=== PATIENT | female | born 2000 | race Hispanic/Latino ===

== ENCOUNTER 2020-03-14 14:02 | Emergency (ER) | payer OTHER ==
[~2020-03-14] VITALS: Ht 157.5 cm; Wt 52.2 kg
--- NOTE | 2020-03-14 14:44 | Emergency Department Note ---
History of Present Illnes History of Present Illness Chief Complaint: after fiding out her father was positive for covid 19 pt became sob and wantds to be checked out History of Present Illness This is a 20 year old female . 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 Any updates have been documented here. Past Medical History Recent Fever: No Clinical Suspicion of Infectio: No New/Unexplained Change in Ment: No Past Medical History: None Other Medical History: lmp now Past Surgical History: None Social History Smoking Cessation: Never Smoker Alcohol Use: None Any Illegal Drug Use: No TB Exposure/Symptoms: No Other Any Pre-Existing Lines (PICC,: No Is patient up to date on immun: No Review of Systems Review of Systems Constitutional: Reports no symptoms EENTM: Reports no symptoms Cardiovascular: Reports no symptoms Respiratory: Reports as per HPI Gastrointestinal: Reports no symptoms Genitourinary: Reports no symptoms Musculoskeletal: Reports no symptoms Integumentary: Reports no symptoms Neurological: Reports no symptoms Psychological: Reports no symptoms Endocrine: Reports no symptoms Hematological/Lymphatic: Reports no symptoms Review of other systems: All other systems negative Physical Exam Related Data Vital signs reviewed: Yes (WNL O2 sat on room air 100 %) Physical Exam CONSTITUTIONAL Constitutional: Present well-developed HENT HENT: Present normocephalic, Present atraumatic EYES Eyes: Reports PERRL, Reports conjunctivae normal, Reports EOM normal, Reports lids normal NECK Neck: Present ROM normal, Present supple PULMONARY Pulmonary: Present effort normal, Present breath sounds normal, Present other (no sign of respiratory distress speaks in full sentences without difficulty no retraction respirations no labored) CARDIOVASCULAR Cardiovascular: Present regular rhythm, Present heart sounds normal, Present intact distal pulses, Present capillary refill normal, Present normal rate GASTROINTESTINAL Abdominal: Present soft, Present nontender, Present bowel sounds normal GENITOURINARY Genitourinary: Present exam deferred SKIN Skin: Present warm, Present dry MUSCULOSKELETAL Musculoskeletal: Present ROM normal NEUROLOGICAL Neurological: Present alert, Present oriented x 3, Present DTRs normal, Present no gross motor or sensory deficits PSYCHOLOGICAL Psychological: Present mood/affect normal, Present behavior normal, Present t hought content normal, Present judgement normal Assessment & Plan Medical Decision Making MDM covid exposure currently asymptomatic needs testing at an out patient facility. Pt told she needs to self isolate for 2 weeks and to follow with her family doctor Assessment & Plan Final Impression: (1) Exposure to COVID-19 virus Depart Disposition: HOME, SELF-CARE JESS BRIGHT MD Mar 14, 2020 14:44
== END 2020-03-14 15:21 | disposition home or self-care (01) ==
LOC: FSED 15:07
DX: Z03.818 Encounter for observation for suspected exposure to other biological agents ruled out (principal)
CPT/HCPCS: 99282

== ENCOUNTER 2020-04-30 04:01 | Emergency (ER) | payer OTHER ==
[~2020-04-30] VITALS: Ht 160 cm; Wt 52.2 kg
[2020-04-30] MEDS ORDERED: MORPHINE SULFATE 2 MG/ML SYR 1ML IV STA ×2 (04:19→05:41)
[2020-04-30] MEDS ORDERED: ONDANSETRON HCL INJ 2MG/ML 2ML 2 MG/ML VIAL IV STA (04:19)
--- NOTE | 2020-04-30 04:25 | NUR ---
PT VOMITED INTO TRASH CAN X1
[2020-04-30] MEDS ORDERED: MORPHINE SULFATE INJ 4 MG/ML INJ 1ML ONE (04:39)
[2020-04-30] MEDS ORDERED: ONDANSETRON HCL INJ 2MG/ML 2ML 2 MG/ML VIAL ONE (04:39)
--- NOTE | 2020-04-30 04:47 | NUR ---
RETURNED FROM CT TO 1
--- NOTE | 2020-04-30 05:00 | NUR ---
AWAITING CT RESULTS.
--- NOTE | 2020-04-30 05:20 | NUR ---
PT CALLED HER MOTHER TELLING HER SHE WAS IN PAIN. MOTHER CAME INTO ER TO INFORM REGISTRATION OF HER DAUGHTER NEEDING MORE PAIN MEDICINE CAUSE SHE WAS IN PAIN. CHECKED ON PT-SHE STATES HER PAIN COMES AND GOES. WHEN IT COMES IT IS 5-6/10 BUT WHEN IT STOPS IT IS 0/10. I EXPLAINED IT HAS BEEN LESS THAN AN HR SINCE SHE REC'D MORPHINE AND NO MORE ORDERED BUT WILL INFORM MD.
--- OUTSIDE RECORDS SUMMARY | 2020-04-30 05:32 | XMS REPORT | Clinical Summary ---
Author Author [facility] Organization [facility] Address Unknown Phone Unavailable Care Team Providers Care English Composition Teacher Name Role Phone Pat Gomez MD PCP Allergies No Known Allergies Medications End Date Status Medication Sig Dispensed Refills Start Date Active ibuprofen (ADVIL ORAL) Take by 0 mouth. Active Problems No known active problems Encounters Care Team Description Date Type Specialty Pat Gomez MD Breast lump in female 12/30/2019 Hospital Radiology Encounter 12/30/2019 Travel 12/26/2019 Travel Pat Gomez MD Breast lump in female (Primary Dx) 12/25/2019 Telemedicine Family Medicine 12/25/2019 Travel after 04/30/2019 Immunizations Name Administration Dates Next Due DTaP, Unspecified 01/19/2004, 04/18/2001, 04/2000, 2000, 2000 Hep A, Unspecified 01/20/2003, 2002 Hep B, Unspecified 2000, 2000, 04/2000 Hib (PRP-T) 04/18/2001, 2000, 04/2000, 2000 IPV 01/19/2004, 04/18/2001, 04/2000, 2000, 2000 Influenza, Quadrivalent 07/28/2010 MMR 01/19/2004, 01/16/2001 Meningcoccal Group B 4 04/26/2018 Strain (3 Dose) Meningococcal ACYW, 12/19/2011 Unspecified Meningococcal MCV4P 04/26/2018 PPD Test 01/16/2006, 01/24/2005, 06/2004, 03/28/2003, 01/16/2001 Pneumococcal Conjugate 04/18/2001, 2000, 04/2000, 2000 Tdap 12/19/2011 Varicella 01/15/2009, 01/16/2001 Family History Medical History Relation Name Comments Hyperlipidemia Father Vitamin D deficiency Father Heart disease Maternal Grandmother No Known Problems Mother Relation Name Status Comments Father Alive Maternal Grandmother Mother Alive Social History Date Tobacco Use Types Packs/Day Years Used Never Smoker Smokeless Tobacco: Never Used Drinks/Week oz/Week Comments Alcohol Use No Sex Assigned at Date Recorded Not on file Industry Job Start Date Occupation Not on file Not on file Not on file Travel End Travel History Travel Start No recent travel history available. Last Filed Vital Signs Not on file Plan of Treatment Health Maintenance Due Date Last Done Comments CHLAMYDIA SCREENING 2016 INFLUENZA VACCINE 05/12/2020 07/28/2010 Procedures Comments Procedure Name Priority Date/Time Associated Diag nosis US BREAST COMPLETE Routine 12/30/2019 Breast lump in female BILATERAL 9:36 AM CDT after 04/30/2019 Results * US Breast Complete Bilateral (12/30/2019 9:36 AM CDT) Specimen Narrative Performed At PROCEDURE: US BREAST COMPLETE BILATERAL [facility] Bilateral real-time whole breast sonogr aphy included all four quadrants and the retroareolar regions under close superv ision by the radiologist. INDICATION: 19-year-old female with rig ht upper-outer quadrant pain and associated palpable finding. COMPARISON: None. FINDINGS: The fibroglandular tissues are homogeneously dense. In the right upper-outer quadrant, at the palpable a lucho of concern, dense fibroglandular tissue is identified. No suspicious mas s or acoustic abnormality is identified in either breast. IMPRESSION: No sonographic abnormalit y in either breast. RECOMMENDATION: Clinical follow-up is r ecommended for the right upper quadrant breast pain. Findings and recommendations were discu ssed with the patient. BI-RADS 2: BENIGN DWS01 Performing Organization Address City/State/Zipcode Ph one Number [facility] [address] [place] [address] after 04/30/2019 Insurance Type Payer Benefit Subscriber ID Effective Phone Address Plan / Dates Group PPO BCBS BCBS OUT xxxxxxxxxxxx 2019-P OF STATE resent [id number] Advance Directives For more information, please contact: [phone] Patient Preparer Explanation Type Date Recorded Advance Directives, Living Will and Medical Power of Casualty Claim Adjuster
--- OUTSIDE RECORDS SUMMARY | 2020-04-30 05:33 | XMS REPORT | Continuity of Care Document ---
Author Author [facility] Organization [facility] Address [address] [place] [address] Phone Unavailable Care Team Providers Care Promotional Model Name Role Phone NO, PCP PCP Unavailable Jason VIERA, Nancy Stewart Attphys Payers Payer Name Policy Type Policy Number Effective Date Expiration Date S ource Miscellaneous Ppo [id number] [facility] Cdc Review Covid19 [id number] [facility] BCBSBCBS OUT OF STATExxxxxxxxxxxx9-PresentPPO xxxxxxxxxxxx 2019 00:00:00 Vincen[facility] Moses Problems Condition Name Condition Details Condition Category Status Onset Date Resolution Date Last Treatment Date Treating Clinician Comments Source Exposure to severe acute respiratory syndrome coronavirus 2 (SARS-CoV-2) Problem Active [facility] Allergies, Adverse Reactions, Alerts This patient has no known allergies or adverse reactions. Family History Family Member Diagnosis Comments Start Date Stop Date Source Natural father Hyperlipidemia [facility] Natural father Vitamin D deficiency Vincenzo Moses Maternal grandmother Heart disease [facility] [place] [facility] Natural mother No Known Problems Maddi Moses Social History Social Habit Start Date Stop Date Quantity Comments Source Sex Assigned At Maddi Moses Alcohol intake 2019-01-16 00:00:00 2019-01-16 00:00:00 Current non-drinker of alcohol (finding) Vincen[facility] Moses Smoking Status Start Date Stop Date Source Never smoker Vincenzo phipps Medications Ordered Medication Name Filled Medication Name Start Date Stop Da te Current Medication? Ordering Clinician Indication Dosage Frequency Signature (SIG) Comments Components Source ibuprofen (ADVIL ORAL) 2019-01-16 12:17:32 Yes Take by mouth. [facility] Immunizations Ordered Immunization Name Filled Immunization Name Date Status Comments Source Meningococcal MCV4P 2018-04-26 00:00:00 Completed [facility] Meningcoccal Group B 4 Strain (3 Dose) 2018-04-26 00:00:00 Completed [facility] Tdap 2011-12-19 00:00:00 Completed [facility] Meningococcal ACYW, Unspecified 2011-12-19 00:00:00 [facility] Influenza, Quadrivalent 2010-07-28 00:00:00 Completed [facility] Varicella 2009-01-15 00:00:00 Completed [facility] PPD Test 2006-01-16 00:00:00 Completed [facility] PPD Test 2005-01-24 00:00:00 Completed [facility] PPD Test 2004-01-19 00:00:00 Completed [facility] MMR 2004-01-19 00:00:00 Completed [facility] IPV 2004-01-19 00:00:00 Completed [facility] DTaP, Unspecified 2004-01-19 00:00:00 Completed [facility] PPD Test 2003-03-28 00:00:00 Completed [facility] Hep A, Unspecified 2003-01-20 00:00:00 Completed [facility] Hep A, Unspecified 2002 00:00:00 Completed [facility] Pneumococcal Conjugate 2001-04-18 00:00:00 Completed [facility] IPV 2001-04-18 00:00:00 Completed [facility] Hib (PRP-T) 2001-04-18 00:00:00 Completed [place] [facility] DTaP, Unspecified 2001-04-18 00:00:00 Completed [facility] Varicella 2001-01-16 00:00:00 Completed [facility] PPD Test 2001-01-16 00:00:00 Completed [facility] MMR 2001-01-16 00:00:00 Completed [facility] Pneumococcal Conjugate 2000 00:00:00 Completed [facility] IPV 2000 00:00:00 Completed [facility] Hib (PRP-T) 2000 00:00:00 Completed [facility] Hep B, Unspecified 2000 00:00:00 Completed [facility] DTaP, Unspecified 2000 00:00:00 Completed [facility] Pneumococcal Conjugate 2000 00:00:00 Completed [facility] IPV 2000 00:00:00 Completed [place] [facility] Hib (PRP-T) 2000 00:00:00 Completed [place] [facility] DTaP, Unspecified 2000 00:00:00 Completed [facility] Pneumococcal Conjugate 2000 00:00:00 Completed [facility] IPV 2000 00:00:00 Completed [place] [facility] Hib (PRP-T) 2000 00:00:00 Completed [place] [facility] Hep B, Unspecified 2000 00:00:00 Completed [facility] DTaP, Unspecified 2000 00:00:00 Completed [facility] Hep B, Unspecified 2000 00:00:00 Completed [facility] Vital Signs Vital Name Observation Time Observation Value Comments Source Weight 2020-03-14 14:15:00 115 [lb_av] [facility] BMI (Body Mass Index) 2020-03-14 14:15:00 21.0 kg/m2 [facility] Procedures Procedure Date / Time Performed Performing Clinician Sour e US BREAST COMPLETE BILATERAL 2019-12-30 09:36:09 Pat Villatoro Plan of Care Planned Activity Planned Date Details Comments Source Future Scheduled Test 2020-05-12 00:00:00 INFLUENZA VACCINE [code = INFLUENZA VACCINE] Vincenzo Moses Future Scheduled Test 2016 00:00:00 CHLAMYDIA SCREENIN G [code = CHLAMYDIA SCREENING] [facility]: 11/25/2019 [facility] Encounters Start Date/Time End Date/Time Encounter Type Admission Type Att[facility] Facility Care Department Encounter ID Source 2020-03-14 15:07:00 2020-03-14 15:21:00 Departed Emergency Room [id number] [facility] 00:00:00 2019-12-30 00:00:00 Outpatient [facility] [id number] Vincenzo Moses 2019-12-25 00:00:00 2019-12-25 00:00:00 Outpatient [facility] [id number] Vincenzo Moses 2019-03-05 23:52:00 2019-03-05 23:52:00 [facility] [facility] Results Test Description Test Time Test Comments Results Result Comments Source US Breast Complete Bilateral 2019-12-30 10:09:16 PROCEDURE: US BREAST COMPLETE BILATERALBilateral real-time whole breast sonography included all four quadrants and the retroareolar regions under close supervision by the radiologist. INDICATION: 19-year-old female with right upper-outer quadrant pain and associated palpable finding. COMPARISON: None. FINDINGS: The fibroglandular tissues are homogeneously dense. In the right upper-outer quadrant, at the palpable area of concern, dense fibroglandular tissue is identified. No suspicious mass or acoustic abnormality is identified in either breast. IMPRESSION: No sonographic abnormality in either breast. RECOMMENDATION: Clinical follow-up is recommended for the right upper quadrant breast pain. Findings and recommendations were discussed with the patient. BI-RADS 2: BENIGN DWS01 [facility]
--- NOTE | 2020-04-30 05:34 | Diagnostic Imaging Report ---
EXAM: CT Abdomen and Pelvis WITHOUT contrast INDICATION: Mid abdominal pain COMPARISON: None. TECHNIQUE: Abdomen and pelvis were scanned utilizing a multidetector helical scanner from the lung base to the pubic symphysis without administration of IV contrast. Absence of intravenous contrast decreases sensitivity for detection of focal lesions and vascular pathology. Coronal and sagittal reformations were obtained. Routine protocol was performed. IV CONTRAST: None ORAL CONTRAST: None COMPLICATIONS: None RADIATION DOSE: Total DLP: ... 216 mGy*cm Estimated effective dose: (DLP x 0.015 x size factor) mSv CTDIvol has been reviewed. It is below the limits set by the Radiation Protocol Committee (RPC). Dose modulation, iterative reconstruction, and/or weight based adjustment of the mA/kV was utilized to reduce the radiation dose to as low as reasonably achievable. FINDINGS: LINES and TUBES: None. LOWER THORAX: Unremarkable HEPATOBILIARY: No focal hepatic lesions. No biliary ductal dilation. GALLBLADDER: No radio-opaque stones or sludge. No wall thickening. SPLEEN: No splenomegaly. PANCREAS: No focal masses or ductal dilatation. ADRENALS: No adrenal nodules KIDNEYS/URETERS: No hydronephrosis. No cystic or solid mass lesions. No stones. GI TRACT: No abnormal distention, wall thickening, or evidence of bowel obstruction. Appendix is normal. PELVIC ORGANS/BLADDER: Right ovarian follicle/cyst. LYMPH NODES: No lymphadenopathy. VESSELS: Unremarkable. PERITONEUM / RETROPERITONEUM: No free air or fluid. BONES: Unremarkable. SOFT TISSUES: Unremarkable. IMPRESSION: No acute abnormality in the abdomen or pelvis on this noncontrast CT. Signed by: Nehemiah Limon DO on 04/30/2020 5:30 AM
--- NOTE | 2020-04-30 05:44 | Emergency Department Note ---
History of Present Illnes History of Present Illness Chief Complaint: Abdominal Complaints History of Present Illness This is a 20 year old female Chief Complaint Comment MIDLINE UPPER ABD PAINS SINCE 2329. SHARP CRAMPING FEELING. DENIES ANY OTHER SYMPTOMS. NO N/V/D . Historian: Patient Arrival Mode: Car Additional Treatment RADIATION SAFETY OFFICER: NONE Onset (how long ago): day(s) Location: periumbilical Quality: craming Radiation: Denies non-radiation, Denies back, Denies neck, Denies extremity, Denies abdomen, Denies periumbilical, Denies flank, Denies proximal, Denies distal, Denies other Severity: moderate Onset quality: gradual Duration (how long): day(s) (1) Timing of current episode: constant Progression: waxing and waning Chronicity: new Context: Denies recent illness, Denies recent surgery, Denies recent immobilization, Denies recent travel, Denies trauma/injury, Denies new medications, Denies hx of DVT/PE, Denies non-compliance w/ medications, Denies other Relieving factors: none Exacerbating factors: none Associated symptoms: Reports denies other symptoms Treatments prior to arrival: none Past Medical/Family History Physician Review I have reviewed the patient's past medical and family history. Any updates have been documented here. Past Medical History Recent Fever: No Clinical Suspicion of Infectio: No New/Unexplained Change in Ment: No Past Medical History: None Other Medical History: lmp now Past Surgical History: None Social History Smoking Cessation: Current every day smoker Alcohol Use: None Any Illegal Drug Use: No Physically hurt or threatened: No Other Any Pre-Existing Lines (PICC,: No Review of Systems Review of Systems Constitutional: Reports no symptoms EENTM: Reports no symptoms Cardiovascular: Reports no symptoms Respiratory: Reports no symptoms Gastrointestinal: Reports as per HPI Genitourinary: Reports no symptoms Musculoskeletal: Reports no symptoms Integumentary: Reports no symptoms Neurological: Reports no symptoms Psychological: Reports no symptoms Endocrine: Reports no symptoms Hematological/Lymphatic: Reports no symptoms Physical Exam Related Data Allergies: Coded Allergies: No Known Allergies (Unverified , 03/14/20) Triage Vital Signs Vital Signs Date Time Temp Pulse Resp B/P (MAP) Pulse Ox O2 Delivery O2 Flow Rate FiO2 04/30/20 04:09 98.5 74 18 125/62 100 Room Air Vital signs reviewed: Yes Physical Exam CONSTITUTIONAL Constitutional: Present well-developed, Present well-nourished HENT HENT: Present normocephalic, Present atraumatic, Present oropharynx clear/moist, Present nose normal HENT L/R: Present left ext ear normal, Present right ext ear normal EYES Eyes: Reports PERRL, Reports conjunctivae normal NECK Neck: Present ROM normal PULMONARY Pulmonary: Present effort normal, Present breath sounds normal CARDIOVASCULAR Cardiovascular: Present regular rhythm, Present heart sounds normal, Present capillary refill normal, Present normal rate GASTROINTESTINAL Abdominal: Present soft, Present bowel sounds normal, Present tender GENITOURINARY Genitourinary: Present exam deferred SKIN Skin: Present warm, Present dry MUSCULOSKELETAL Musculoskeletal: Present ROM normal NEUROLOGICAL Neurological: Present alert, Present oriented x 3, Present no gross motor or sensory deficits PSYCHOLOGICAL Psychological: Present mood/affect normal, Present judgement normal Results Laboratory Lab results reviewed: Yes Imaging Imaging results reviewed: Yes Assessment & Plan Medical Decision Making MDM appendicitis renal colic Reassessment Reassessment better Assessment & Plan Final Impression: (1) Abdominal pain (2) Vomiting Depart Disposition: HOME, SELF-CARE Last Vital Signs Date Time Temp Pulse Resp B/P (MAP) Pulse Ox O2 Delivery O2 Flow Rate FiO2 04/30/20 04:09 98.5 74 18 125/62 100 Room Air Medications in the ED Morphine Sulfate 2 mg NOW STAT IV Last administered on 04/30/20at 04:37; Admin Dose 2 MG; Start 04/30/20 at 04:19; Stop 04/30/20 at 04:20; Status UNV Ondansetron HCl 4 mg NOW STAT IV Last administered on 04/30/20at 04:34; Admin Dose 4 MG; Start 04/30/20 at 04:19; Stop 04/30/20 at 04:20; Status UNV Morphine Sulfate 4 mg STK-MED ONCE .ROUTE ; Start 04/30/20 at 04:39; Stop 04/30/20 at 04:34; Status SANDRA BERGER MD Apr 30, 2020 05:44
[2020-04-30] MEDS ORDERED: POTASSIUM CHLORIDE 20 MEQ TAB CR PO STA (05:45)
[2020-04-30] MEDS ORDERED: DICYCLOMINE HCL 20 MG/2 ML VIAL IM ONE ×2 (05:45→05:49)
--- NOTE | 2020-04-30 05:55 | NUR ---
DC'D IVSL WITHOUT DIFF. NO REDNESS/SWELLING/BLEEDING TO SITE. CATH INTACT
[2020-04-30] MEDS ORDERED: POTASSIUM CHLORIDE 20 MEQ TAB CR PO ONE (05:56)
[2020-04-30 06:05] VITALS: BP 126/64
== END 2020-04-30 06:05 | disposition home or self-care (01) ==
LOC: FSED 05:29
DX: R10.33 Periumbilical pain (principal); R11.10 Vomiting, unspecified; F17.210 Nicotine dependence, cigarettes, uncomplicated
CPT/HCPCS: 74176; 80048; 80076; 81003; 81025; 85025; 96374; 96376; 99284; J0500; J2270; J2405